=== PATIENT | female | born 1960 | race Caucasian/White ===

== ENCOUNTER 2017-08-26 17:41 | Emergency (ER) | payer OTHER ==
[2017-08-26 17:58] VITALS: BP 132/82
--- NOTE | 2017-08-26 18:19 | UC ---
Skin Complaint HPI - HPI Summary HPI Summary: 57 y/o female presents to the urgent care c/o c/o rash to lower left leg since 1700. Denies itching or pain. - History of Current Complaint Chief Complaint: UCRash Time Seen by Provider: 08/26/17 18:03 Stated Complaint: RASH Pain Intensity: 0 - Allergy/Home Medications Allergies/Adverse Reactions: Allergies Allergy/AdvReac Type Severity Reaction Status Date / Time No Known Allergies Allergy Verified 08/26/17 17:58 Home Medications: Home Medications Alendronate Sodium/Vitamin D3 [Fosamax Plus D 70-2800 mg-Unit-] 1 tab PO WEEKLY 08/26/17 [History Confirmed 08/26/17] Lisinopril TAB* [Prinivil TAB 10 MG*] 1 tab PO DAILY 08/26/17 [History Confirmed 08/26/17] PMH/Surg Hx/FS Hx/Imm Hx - Surgical History Surgical History: Yes Surgery Procedure, Year, and Place: THYROIDECTOMY - Social History Alcohol Use: None Substance Use Type: None Smoking Status (MU): Never Smoked Tobacco Physical Exam - Summary Physical Exam Summary: Vital Signs Reviewed: Yes General: well developed, well nourished female sitting in the examining table w/ o any apparent distress. Eyes: Positive: Conjunctiva Clear - PERRLA, EOMI ENT: Positive: Normal ENT inspection, Hearing grossly normal, Pharynx normal, TMs normal Neck: Positive: Supple, Nontender, No Lymphadenopathy Respiratory: Positive: Chest nontender, Lungs clear, Normal breath sounds Cardiovascular: Positive: RRR, No Murmur, Pulses Normal Abdomen Description: Positive: Nontender, No Organomegaly, Soft. Negative: CVA Tenderness (R), CVA Tenderness (L) Bowel Sounds: Positive: Present Musculoskeletal: Positive: Strength Intact, ROM Intact, No Edema Neurological Exam: Normal Psychological Exam: Normal Skin: Positive: rashes - Ventral side of Lf leg w/o any rash. Pt states it was red , but it just resolved.no tenderness to palpation or swelling observed Triage Information Reviewed: Yes Vital Signs: Initial Vital Signs Temp 98.6 F 08/26/17 17:56 Pulse 74 08/26/17 17:56 Resp 18 08/26/17 17:56 BP 132/82 08/26/17 17:56 Pulse Ox 100 08/26/17 17:56 Discharge - Discharge Plan Condition: Stable Disposition: HOME Patient Education Materials: Acute Rash (ED) Referrals: Kerry Sanches NP [Primary Care Provider] - 3 Days Additional Instructions: 1-Take Benadryl 25mg PO Q6hrs if rash returns. Then f/u with your PCP or return to the urgent care for further evaluation and treatment. - Billing Disposition and Condition Condition: STABLE Disposition: HOME
== END 2017-08-26 18:40 | disposition home or self-care (01) ==
LOC: UCEAST 17:41
DX: R21 Rash and other nonspecific skin eruption (principal)
CPT/HCPCS: 99211; G0463